=== PATIENT | female | born 1965 | race African-American/Black ===

== ENCOUNTER 2017-12-21 18:25 | Emergency (ER) | payer SELFPAY ==
[~2017-12-21] VITALS: Ht 167.6 cm; Wt 73.0 kg
[2017-12-21] MEDS ORDERED: KETOROLAC 60MG/2ML VIAL IM ONE (20:45)
[2017-12-21 21:30] VITALS: BP 129/74
== END 2017-12-21 21:30 | disposition home or self-care (01) ==
LOC: ER 18:25
DX: M25.511 Pain in right shoulder (principal); M54.2 Cervicalgia
CPT/HCPCS: 73030; 96372; 99284; J1885

== ENCOUNTER 2021-08-12 03:52 | Emergency (ER) | payer SELFPAY ==
[~2021-08-12] VITALS: Ht 165.1 cm; Wt 68.0 kg
[2021-08-12] MEDS ORDERED: NITROGLYCERIN 0.4MG TABLET SL SL PRN (04:00)
[2021-08-12] MEDS ORDERED: ASPIRIN 81MG TABLET PO ONE (04:00)
[2021-08-12] MEDS ORDERED: MORPHINE SULFATE 4 MG/ML CPJ (NOT FOR IM USE) IV ONE (04:15)
[2021-08-12 04:36] LABS: CHLORIDE 102 mEq/L (98-107)
[2021-08-12 04:40] LABS: ETHANOL BLOOD < 10 mg/dL
[2021-08-12 04:42] LABS: BASOPHILS % 1.5 % (0.0-2.0); EOSINOPHILS % 0.4 % (0.0-5.0); HEMATOCRIT. 42.2 % (36.0-48.0); HEMOGLOBIN. 14.8 g/dL (12.0-16.0); LYMPHOCYTES % 28.1 % (20.0-50.0); MEAN CORPUSCULAR HEMOGLOBIN 28.8 pg (28.0-32.0); MEAN PLATELET VOLUME 9.4 fl (7.4-10.4); MONOCYTES % 4.4 % (2.0-8.0); NEUTROPHILS % 65.6 % (40.0-76.0); PLATELET 209 x1000/uL (130-400); RED BLOOD CELL COUNT 5.14 mill/uL (4.2-5.4); RED CELL DISTRIBUTION WIDTH 13.9 % (11.6-14.6)
[2021-08-12 04:55] LABS: *AMPHETAMINES SCREEN URINE NEGATIVE (NEGATIVE); *BARBITURATES SCREEN URINE NEGATIVE (NEGATIVE); *BENZODIAZEPINES SCREEN URINE NEGATIVE (NEGATIVE); CANNABINOID URINE SCREEN NEGATIVE (NEGATIVE); OPIATES URINE SCREEN NEGATIVE (NEGATIVE); PHENCYCLIDINE URINE SCREEN NEGATIVE (NEGATIVE)
[2021-08-12 04:56] LABS: *COCAINE SCREEN URINE NEGATIVE (NEGATIVE); METHADONE URINE SCREEN NEGATIVE (NEGATIVE)
[2021-08-12] MEDS ORDERED: KETOROLAC 30MG/ML VIAL IV ONE (06:45)
[2021-08-12 07:46] VITALS: BP 153/71
[2021-08-12] MEDS ORDERED: TOPUD PO (08:50)
== END 2021-08-12 09:34 | disposition home or self-care (01) ==
LOC: ER 04:01
DX: R07.89 Other chest pain (principal); I10 Essential (primary) hypertension
CPT/HCPCS: 36415; 71045; 80053; 80305; 80320; 83880; 84484; 85025; 93005; 96374; 99285; J2270; Z7610; G0480